=== PATIENT | female | born 1995 | race Caucasian/White ===

== ENCOUNTER 2018-01-03 14:25 | Emergency (ER) | payer MEDICAID, OTHER ==
[2018-01-03] MEDS ORDERED: Bupivacaine PF 0.5% 30 ML VIAL ONE (14:58)
== END 2018-01-03 15:20 | disposition home or self-care (01) ==
LOC: MADERS 14:25
DX: K04.7 Periapical abscess without sinus (principal)
CPT/HCPCS: 64400; S0020

== ENCOUNTER 2018-07-23 19:03 | Emergency (ER) | payer SELFPAY ==
[2018-07-23] MEDS ORDERED: Sodium Chloride 0.9% 1,000 ML ONE (19:51)
[2018-07-23] MEDS ORDERED: Ketorolac Tromethamine 30 MG/ML VIAL ONE (19:51)
[2018-07-23 20:16] LABS: #Basophils 0.1 thou/uL (0.0-0.2); #Eosinphils 0.1 thou/uL (0.0-0.7); #Lymphocytes 2.8 thou/uL (1.20-3.40); #Monocytes 0.6 thou/uL (0.11-0.59); #Neutrophils 8.4 thou/uL (1.40-6.50); %Basophils 0.7 % (0.0-1.0); %Eosinophils 1.1 % (0.0-10.0); %Lymphocytes 23.3 % (21.0-51.0); %Monocytes 5.2 % (0.0-10.0); %Neutrophils 69.7 % (42.0-75.0); Hemoglobin 13.7 g/dL (12.0-16.0); Mean Corpuscular HGB CONC 33.4 g/dL (32.0-36.0); Mean Corpuscular Hemoglobin 29.2 pg (27.0-31.0); Mean Corpuscular Volume 87.6 fL (78.0-98.0); Mean Platelet Volume 7.5 fL (7.4-10.4); Platelet Count 238 thou/uL (130-400); RBC Distribution Width 11.5 % (11.5-14.5); Red Blood Cell (RBC) Count 4.68 mill/uL (4.20-5.40); White Blood Cell (WBC) Count 12.1 thou/uL (4.8-10.8)
[2018-07-23 20:24] LABS: BHCG - Serum Negative (NEGATIVE); Pregs Control Background? CLEAR/WHITE (CLR/WHITE); Pregs Control Bar Appear? YES (CONTROL BAR)
[2018-07-23 20:26] LABS: Anion Gap 11 mmol/L (10-20); BUN (Urea Nitrogen) 11 mg/dL (7.0-18.7); Calc. Creatinine Clearance 0 mL/min (70-130); Calcium 8.2 mg/dL (7.8-10.44); Carbon Dioxide 25 mmol/L (22-29); Chloride 109 mmol/L (98-107); Estimated GFR-MDRD Greater than 90; Glucose 98 mg/dL (70-105); Potassium 3.8 mmol/L (3.5-5.1); Sodium 141 mmol/L (136-145)
== END 2018-07-23 20:58 | disposition home or self-care (01) ==
LOC: MADERS 19:03
DX: E86.0 Dehydration (principal); M79.602 Pain in left arm
CPT/HCPCS: 80048; 84703; 85025; 96361; 96374; J1885; J7050

== ENCOUNTER 2020-09-24 12:34 | Emergency (ER) | payer OTHER ==
[2020-09-24] MEDS ORDERED: Dexamethasone 4 MG TAB ONE (13:06)
== END 2020-09-24 13:05 | disposition home or self-care (01) ==
LOC: MADERS 12:34
DX: L25.9 Unspecified contact dermatitis, unspecified cause (principal); Z79.899 Other long term (current) drug therapy
CPT/HCPCS: 99282; J8540

== ENCOUNTER 2020-10-03 00:56 | Emergency (ER) | payer OTHER ==
[2020-10-03] MEDS ORDERED: Penicillin V Potassium 250 MG TAB ONE ×2 (01:41)
== END 2020-10-03 01:45 | disposition home or self-care (01) ==
LOC: MADERS 00:56
DX: K02.9 Dental caries, unspecified (principal); K03.81 Cracked tooth; Z79.899 Other long term (current) drug therapy
CPT/HCPCS: 99282

== ENCOUNTER 2020-11-30 10:59 | Emergency (ER) | payer OTHER ==
[2020-11-30] MEDS ORDERED: Cephalexin 500 MG CAP ONE (11:35)
[2020-11-30] MEDS ORDERED: Dexamethasone 4 MG TAB ONE (11:35)
== END 2020-11-30 11:40 | disposition home or self-care (01) ==
LOC: MADERS 10:59
DX: L03.114 Cellulitis of left upper limb (principal); L30.9 Dermatitis, unspecified
CPT/HCPCS: 99282; J8540

== ENCOUNTER 2021-01-18 11:19 | Emergency (ER) | payer OTHER ==
[2021-01-18 12:05] LABS: #Basophils 0.1 thou/uL (0.0-0.2); #Eosinphils 0.1 thou/uL (0.0-0.7); #Lymphocytes 2.8 thou/uL (1.20-3.40); #Monocytes 0.6 thou/uL (0.11-0.59); #Neutrophils 5.9 thou/uL (1.40-6.50); %Basophils 0.8 % (0.0-1.0); %Eosinophils 0.9 % (0.0-10.0); %Lymphocytes 29.4 % (21.0-51.0); %Monocytes 6.4 % (0.0-10.0); %Neutrophils 62.5 % (42.0-75.0); Hemoglobin 15.2 g/dL (12.0-16.0); Mean Corpuscular HGB CONC 32.5 g/dL (32.0-36.0); Mean Corpuscular Hemoglobin 29.6 pg (27.0-31.0); Mean Platelet Volume 8.2 fL (7.4-10.4); Platelet Count 217 thou/uL (130-400); RBC Distribution Width 11.6 % (11.5-14.5); Red Blood Cell (RBC) Count 5.13 mill/uL (4.20-5.40); White Blood Cell (WBC) Count 9.4 thou/uL (4.8-10.8)
[2021-01-18] MEDS ORDERED: Mag-Al Plus 1200 MG/1200 MG/120 MG/30 ML UDCUP ONE (12:07)
[2021-01-18] MEDS ORDERED: Famotidine In NaCl 20 mg/50 ml Premix Bag ONE (12:07)
[2021-01-18] MEDS ORDERED: Lidocaine Viscous Sol 2% 15 ml UD Cup ONE (12:07)
[2021-01-18 12:20] LABS: ALT (SGPT) 15 U/L (8-55); AST (SGOT) 15 U/L (5-34); Albumin 4.4 g/dL (3.5-5.0); Alkaline Phosphatase 37 U/L (40-110); Anion Gap 12 mmol/L (10-20); BUN (Urea Nitrogen) 13 mg/dL (7.0-18.7); Bilirubin, Total 0.6 mg/dL (0.2-1.2); Calc. Creatinine Clearance 0 mL/min (70-130); Calcium 9.8 mg/dL (7.8-10.44); Carbon Dioxide 27 mmol/L (22-29); Chloride 107 mmol/L (98-107); Glucose 92 mg/dL (70-105); Lipase 52 U/L (8-78); Potassium 3.6 mmol/L (3.5-5.1); Protein, Total 7.4 g/dL (6.0-8.3); Sodium 142 mmol/L (136-145)
[2021-01-18 12:21] LABS: BHCG - Serum Negative (NEGATIVE); Pregs Control Background? CLEAR/WHITE (CLR/WHITE); Pregs Control Bar Appear? YES (CONTROL BAR)
[2021-01-18 12:26] LABS: Bilirubin Negative (Negative); Blood, Urine Negative (Negative); Glucose, Urine (Dipstick) Negative (Negative); Ketone, Urine Negative (Negative); Leukocyte Small (Negative); Nitrite Negative (Negative); Protein, Urine (Dipstick) Negative (Neg-Trace); Urobilinogen 0.2 mg/dL (Less than 2)
[2021-01-18 12:28] LABS: Clarity Hazy (Clear)
[2021-01-18 12:33] LABS: RBC/HPF 0-3 HPF (0-3)
[2021-01-18 12:34] LABS: Bacteria/HPF Rare-Few HPF (None Seen)
== END 2021-01-18 13:12 | disposition home or self-care (01) ==
LOC: MADERS 11:19
DX: R10.13 Epigastric pain (principal); R10.11 Right upper quadrant pain; R11.0 Nausea
CPT/HCPCS: 36415; 76705; 80053; 81003; 81015; 83605; 83690; 84703; 85025; 96365

== ENCOUNTER 2023-02-25 14:48 | Emergency (ER) | payer OTHER | END 2023-02-25 16:50 | disposition home or self-care (01) | LOC: MADERS 14:48 | DX: K02.9 Dental caries, unspecified (principal) | CPT/HCPCS: 99282 ==